=== PATIENT | male | born 1985 | race Hispanic/Latino ===

== ENCOUNTER → 2025-08-15 | Outpatient (CLI) | payer OTHER, SELFPAY ==
--- NOTE | 2025-08-15 17:49 | HMCSR ---
APPROVED REPORT EXAM: Two-dimensional and M-mode echocardiogram with Doppler and color Doppler. INDICATION ICD: Cardiac murmur, unspecified R01.1 2D Dimensions RVDd 4.5 cm LVEF(%) 8.4 (>50%) LVED Vol(simp.) 261.3 mL IVSd 0.7 (0.7-1.1cm) FS(%) 4 % LVES Vol(simp.) 220.6 mL LVDd 6.2 (3.8-5.6cm) LA (2D) 5.3 (1.6-4.0cm) LVEF(%, simp.) 16 % PWd 1.3 (0.7-1.1cm) Ao Root(2D) 3.1 (2.0-3.7cm) LA ESV INDEX (BP) 42.51 mL/m2 LVDs 6.0 (2.5-4.0cm) LVOT diam 2.5 (1.8-2.4cm) IVC diam 2.8 cm M-Mode Dimensions EPSS 2.5 cm LA (MM) 5.6 (1.6-4.0cm) Ao Root(MM) 2.9 (2.0-3.7cm) Aortic Valve AoV Vmax 0.7 m/s Ao Peak GR 2.2 mmHg LVOT Vmax 0.7 m/s AoV VTI 0.1 m Ao Mean GR 1.4 mmHg LVOT VTI 0.10 m ERNESTO (VMAX) 4.74 cm2 ERNESTO (VTI) 4.7 cm2 Mitral Valve MV E Vmax 97.4 cm/s DECEL Time 149 ms MV A Vmax 21.2 cm/s P 1/2 T 47 ms E/A ratio 4.6 MVA (PHT) 4.7 cm2 TDI E/E' Medial 17.6 E/E' Lateral 12.6 Medial E' Peak V 5.53 cm/s Lateral E' Peak V 7.72 cm/s Tricuspid Valve TR Vmax 2.5 m/s RAP (EST) 15 mmHg RVSP 43.6 mmHg TR Peak GR 28.6 mmHg Left Ventricle The left ventricle is moderately dilated. Basal and mid inferior and inferolateral segments are severely hypokinetic. The rest of the ventricle is akinetic. There is normal left ventricular wall thickness. LVEF is 18% by biplane analysis. Stage III diastolic dysfunction with high LV mean filling pressure. Right Ventricle The right ventricle is mildly to moderately dilated. Right ventricular systolic function is severely reduced. Atria The left atrium is moderately dilated. The right atrium is moderately dilated. Aortic Valve The aortic valve is normal in structure. Systolic closure of aortic valve indicates severe systolic dysfnction with low stroke volume. No aortic regurgitation is present. There is no aortic valvular stenosis. Mitral Valve The mitral valve is normal in structure. Increased EPSS suggests low stroke volume. Mitral regurgitation is mild. There is no mitral valve stenosis. Tricuspid Valve The tricuspid valve is normal in structure. There is mild tricuspid valve regurgitation noted. Mild pulmonary hypertension, PAP 43 mmHg. Pulmonic Valve The pulmonary valve is normal in structure. There is no pulmonic valvular regurgitation. Great Vessels The aortic root is normal in size. IVC is dilated and collapses <50% with inspiration mean RA pressure over 15 mmHg. Pericardium Small pericardial effusion. No echo indications of pericardial tamponade. Conclusion LVEF is 18% by biplane analysis. Basal and mid inferior and inferolateral segments are severely hypokinetic. The rest of the ventricle is akinetic. Stage III diastolic dysfunction with high LV mean filling pressure. The left ventricle is moderately dilated. Systolic closure of aortic valve indicates severe systolic dysfnction with low stroke volume. Increased EPSS suggests low stroke volume. Mild pulmonary hypertension, PAP 43 mmHg. IVC is dilated and collapses <50% with inspiration mean RA pressure over 15 mmHg. Small pericardial effusion.
== END | disposition home or self-care (01) ==
LOC: RAH 13:09
PROVIDERS: ATTEND Internal Medicine
DX: I08.1 Rheumatic disorders of both mitral and tricuspid valves (principal); I27.20 Pulmonary hypertension, unspecified; I31.39 Other pericardial effusion (noninflammatory); R01.1 Cardiac murmur, unspecified
CPT/HCPCS: 93306